=== PATIENT | male | born 1970 | race Caucasian/White ===

== ENCOUNTER 2022-03-08 10:25 | Emergency (ER) | payer OTHER ==
[2022-03-08 10:33] VITALS: BP 107/67; PULSE 68; RESP 16; TEMP 98
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
== END 2022-03-08 11:33 | disposition home or self-care (01) ==
LOC: EC 10:25
DX: M79.642 Pain in left hand (principal)